=== PATIENT | male | born 1960 | race Caucasian/White ===

== ENCOUNTER 2018-04-11 01:15 | Inpatient (IN) | payer SELFPAY ==
[2018-04-11] MEDS ORDERED: BABY ASPIRIN PO ONE (02:01)
[2018-04-11] MEDS ORDERED: NITROSTAT SL ONE ×2 (02:01→11:30)
--- NOTE | 2018-04-11 02:03 | Emergency Department Report ---
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 Has an extensive history of cardiac disease, reports cardiac bypass in 2006, multiple stents placed in multiple different states, currently on aspirin and brilinta. The patient presents to the ER with a complaint of chest pain. It is central and left-sided. It does not radiate anywhere. He denies vomiting, diaphoresis, does not have significant shortness of breath. He reports no leg pain or leg swelling but reports multiple airplane t Rips secondary to his confucianism observations. MD Complaint: chest pain -: Gradual Onset: during rest Pain Location: substernal, left chest Pain Radiation: RUE Severity: moderate Quality: tightness, aching, heaviness Consistency: intermittent Improves With: nothing Worsens With: nothing Context: recent travel Aspirin use within the Past 7 Days: (1) Yes - Related Data On Oral Contraceptives: No Home Medications Medication Instructions Recorded Confirmed Last Taken Aspirin 81 mg PO DAILY 04/11/18 04/11/18 Unknown Atorvastatin 40 mg PO DAILY 04/11/18 04/11/18 Unknown Brilinta 90 mg PO DAILY 04/11/18 04/11/18 Unknown Metoprolol Xl 25 mg PO DAILY 04/11/18 04/11/18 Unknown Nitroglycerin ER 1 tab SL BID 04/11/18 04/11/18 Unknown Valsartan 160 mg PO DAILY 04/11/18 04/11/18 Unknown amLODIPine 5 mg PO DAILY 04/11/18 04/11/18 Unknown Allergies Allergy/AdvReac Type Severity Reaction Status Date / Time erythromycin base Allergy Shortness Verified 04/11/18 02:01 of Breath metronidazole [From Flagyl] Allergy Shortness Verified 04/11/18 02:01 of Breath Penicillins Allergy Shortness Verified 04/11/18 02:00 of Breath Quinolones Allergy Shortness Verified 04/11/18 02:00 of Breath All Antibiotics Allergy Shortness Uncoded 04/11/18 02:02 of Breath Heart Score - HEART Score History: Moderately suspicious EKG: Non-specific Age: 45-65 Risk factors: 1-2 risk factors Troponin: < normal limit HEART Score: 4 - Critical Actions Critical Actions: 4-6 pts:12-16.6% risk of adverse cardiac event. Should be admitted ED Review of Systems ROS: Stated complaint: CHEST PAIN Other details as noted in HPI Comment: All other systems reviewed and negative ED Past Medical Hx - Past Medical History Previous Medical History?: Yes Hx Hypertension: Yes Hx Heart Attack/AMI: Yes (CABG, Stents) - Surgical History Additional Surgical History: Stents X4, CABG - Social History Smoking Status: Never Smoker Substance Use Type: None - Medications Home Medications: Home Medications Medication Instructions Recorded Confirmed Last Taken Type Aspirin 81 mg PO DAILY 04/11/18 04/11/18 Unknown History Atorvastatin 40 mg PO DAILY 04/11/18 04/11/18 Unknown History Brilinta 90 mg PO DAILY 04/11/18 04/11/18 Unknown History Metoprolol Xl 25 mg PO DAILY 04/11/18 04/11/18 Unknown History Nitroglycerin ER 1 tab SL BID 04/11/18 04/11/18 Unknown History Valsartan 160 mg PO DAILY 04/11/18 04/11/18 Unknown History amLODIPine 5 mg PO DAILY 04/11/18 04/11/18 Unknown History ED Physical Exam - General Limitations: No Limitations General appearance: alert, in no apparent distress - Head Head exam: Present: atraumatic, normocephalic - Eye Eye exam: Present: normal appearance, EOMI. Absent: nystagmus - ENT ENT exam: Present: normal exam, normal orophraynx, mucous membranes moist, normal external ear exam - Neck Neck exam: Present: normal inspection, full ROM. Absent: tenderness, meningismus - Respiratory Respiratory exam: Present: normal lung sounds bilaterally. Absent: respiratory distress - Cardiovascular Cardiovascular Exam: Present: regular rate, normal rhythm, normal heart sounds. Absent: bradycardia, tachycardia, irregular rhythm, systolic murmur, diastolic murmur, rubs, gallop - GI/Abdominal GI/Abdominal exam: Present: soft, normal bowel sounds. Absent: distended, tenderness, guarding, rebound, rigid, pulsatile mass - Rectal Rectal exam: Present: deferred - Extremities Exam Extremities exam: Present: normal inspection, full ROM, normal capillary refill , other (there is no palpable cord. This is negative Homans sign.). Absent: tenderness, pedal edema, joint swelling, calf tenderness - Back Exam Back exam: Present: normal inspection, full ROM. Absent: tenderness, CVA tenderness (R), paraspinal tenderness, vertebral tenderness - Neurological Exam Neurological exam: Present: alert, oriented X3, CN II-XII intact, other ( Extraocular movements intact. Tongue midline. No facial droop. Facial sensation intact to light touch in the V1, V2, V3 distribution bilaterally. 5 and 5 strength in 4 extremities.. Sensation is intact to light touch in 4 extremities.). Absent: motor sensory deficit - Psychiatric Psychiatric exam: Present: normal affect, normal mood - Skin Skin exam: Present: warm, dry, intact, normal color. Absent: rash ED Course Vital Signs 04/11/18 04/11/18 04/11/18 01:26 01:30 01:46 Temperature Pulse Rate 65 69 Respiratory 14 15 Rate Blood Pressure 123/70 129/79 O2 Sat by Pulse 98 99 98 Oximetry 04/11/18 04/11/18 04/11/18 01:53 02:00 02:21 Temperature 98 F Pulse Rate 74 65 60 Respiratory 16 10 L 15 Rate Blood Pressure 123/70 135/70 O2 Sat by Pulse 99 99 99 Oximetry 04/11/18 04/11/18 02:30 02:45 Temperature Pulse Rate 58 L 52 L Respiratory 17 15 Rate Blood Pressure 133/77 129/79 O2 Sat by Pulse 98 99 Oximetry MORGAN score - Morgan Score Age > 65: (0) No Aspirin use within the Past 7 Days: (1) Yes 3 or more CAD Risk Factors: (1) Yes 2 or more Angina events in past 24 hrs: (0) No Known CAD with more than 50% Stenosis: (0) No Elevated Cardiac Markers: (0) No ST Deviation Greater than 0.5mm: (0) No MORGAN Score: 2 ED Medical Decision Making - Lab Data Result diagrams: 04/11/18 02:25 04/11/18 02:25 Vital Signs 04/11/18 04/11/18 04/11/18 01:26 01:30 01:46 Temperature Pulse Rate 65 69 Respiratory 14 15 Rate Blood Pressure 123/70 129/79 O2 Sat by Pulse 98 99 98 Oximetry 0604/11/18 04/11/18 01:53 02:00 02:21 Temperature 98 F Pulse Rate 74 65 60 Respiratory 16 10 L 15 Rate Blood Pressure 123/70 135/70 O2 Sat by Pulse 99 99 99 Oximetry 04/11/18 04/11/18 02:30 02:45 Temperature Pulse Rate 58 L 52 L Respiratory 17 15 Rate Blood Pressure 133/77 129/79 O2 Sat by Pulse 98 99 Oximetry Lab Results 04/11/18 04/11/18 04/11/18 Range/Units 02:25 02:25 02:25 WBC 6.1 (4.5-11.0) K/mm3 RBC 4.09 (3.65-5.03) M/mm3 Hgb 12.6 (11.8-15.2) gm/dl Hct 37.7 (35.5-45.6) % MCV 92 (84-94) fl MCH 31 (28-32) pg MCHC 34 (32-34) % RDW 12.7 L (13.2-15.2) % Plt Count 233 (140-440) K/mm3 Lymph % (Auto) 27.0 (13.4-35.0) % [place] % (Auto) 12.1 H (0.0-7.3) % Eos % (Auto) 6.2 H (0.0-4.3) % Baso % (Auto) 0.9 (0.0-1.8) % Lymph # 1.6 (1.2-5.4) K/mm3 [place] # 0.7 (0.0-0.8) K/mm3 Eos # 0.4 (0.0-0.4) K/mm3 Baso # 0.1 (0.0-0.1) K/mm3 Seg Neutrophils % 53.8 (40.0-70.0) % Seg Neutrophils # 3.3 (1.8-7.7) K/mm3 PT 13.4 (12.2-14.9) Sec. INR 0.97 (0.87-1.13) APTT 26.7 (24.2-36.6) Sec. D-Dimer 135.00 (0-234) ng/mlDDU Sodium 136 L (137-145) mmol/L Potassium 4.0 (3.6-5.0) mmol/L Chloride 99.4 (98-107) mmol/L Carbon Dioxide 24 (22-30) mmol/L Anion Gap 17 mmol/L BUN 16 (9-20) mg/dL Creatinine 0.8 (0.8-1.5) mg/dL Estimated GFR > 60 ml/min BUN/Creatinine Ratio 20 % Glucose 102 H (75-100) mg/dL Calcium 8.9 (8.4-10.2) mg/dL Total Bilirubin 0.20 (0.1-1.2) mg/dL AST 42 H (5-40) units/L ALT 32 (7-56) units/L Alkaline Phosphatase 116 (35-129) units/L Troponin T < 0.010 (0.00-0.029) ng/mL Total Protein 6.7 (6.3-8.2) g/dL Albumin 3.8 L (3.9-5) g/dL Albumin/Globulin Ratio 1.3 % Lipase 57 (13-60) units/L - EKG Data -: EKG Interpreted by Nd - EKG Data 04/11/18 05:01 Sinus, 67 bpm, left axis deviation, atrial enlargement, motion artifact, abnormal EKG, not a STEMI - Radiology Data Radiology results: report reviewed, image reviewed X-ray of the chest is negative for acute disease - Medical Decision Making Differential diagnosis, including but not limited to: GERD, gastritis, hiatal hernia, unstable angina, pneumonia, pulmonary embolus Assessment and plan: 58-year-old male with extensive cardiac history, multiple airplane trips, negative d-dimer, troponin negative, cannot reliably follow up as an outpatient for cardiac risk stratification. He further reports his last stent was placed in [place] a few months ago. Patient will be admitted for an acute coronary syndrome risk stratification given his extremely high risk profile. He is not having active pain at this time. The case was presented to the Hospital physician, Dr. Randall who accepted the patient to the medical service. Critical care attestation.: If time is entered above; I have spent that time in minutes in the direct care of this critically ill patient, excluding procedure time. ED Disposition Clinical Impression: Chest pain Qualifiers: Chest pain type: other chest pain Qualified Code(s): R07.89 - Other chest pain Disposition: OP ADMIT IP TO THIS HOSP Is pt being admited?: Yes Condition: Good
[2018-04-11 02:36] LABS: Basophils # (Auto) 0.1 K/mm3 (0.0-0.1); Basophils % (Auto) 0.9 % (0.0-1.8); Eosinophils # (Auto) 0.4 K/mm3 (0.0-0.4); Eosinophils % (Auto) 6.2 % (0.0-4.3); Hematocrit 37.7 % (35.5-45.6); Hemoglobin 12.6 gm/dl (11.8-15.2); Lymphocytes # (Auto) 1.6 K/mm3 (1.2-5.4); Mean Corpuscular HGB Conc 34 % (32-34); Mean Corpuscular Hemoglobin 31 pg (28-32); Mean Corpuscular Volume 92 fl (84-94); Monocytes # (Auto) 0.7 K/mm3 (0.0-0.8); Monocytes % (Auto) 12.1 % (0.0-7.3); Platelet Count 233 K/mm3 (140-440); Red Blood Count 4.09 M/mm3 (3.65-5.03); Red Cell Distribution Width 12.7 % (13.2-15.2)
[2018-04-11 02:50] LABS: INR 0.97 (0.87-1.13); Partial Thromboplastin Time 26.7 Sec. (24.2-36.6)
[2018-04-11 02:58] LABS: Alanine Aminotransferase 32 units/L (7-56); Albumin 3.8 g/dL (3.9-5); BUN/Creatinine Ratio 20; Blood Urea Nitrogen 16 mg/dL (9-20); Calcium 8.9 mg/dL (8.4-10.2); Hemolysis Index 12; Lipase 57 units/L (13-60)
--- NOTE | 2018-04-11 03:08 | XRay Report ---
FINAL REPORT PROCEDURE: XR CHEST ROUTINE 2V TECHNIQUE: PA and lateral chest radiographs were obtained. CPT 49647 HISTORY: Chest Pain COMPARISON: No prior studies are available for comparison. FINDINGS: Heart: Normal. Mediastinum/Vessels: Multiple sternal wires are present. Lungs/Pleural space: Normal. Bony thorax: No acute osseous abnormality. Other: IMPRESSION: Normal examination.
[2018-04-11] MEDS ORDERED: ZOFRAN IV PRN (04:01)
[2018-04-11] MEDS ORDERED: TYLENOL PO PRN (04:01)
[2018-04-11] MEDS ORDERED: SODIUM CHLORIDE FLUSH SYRINGE 10 ML IV PRN (04:01)
[2018-04-11] MEDS ORDERED: MORPHINE IV PRN (04:01)
--- NOTE | 2018-04-11 04:05 | History and Physical Report ---
History of Present Illness Date of examination: 04/11/18 History of present illness: This is a 58-year-old man with history of hypertension, CAD comes to the ER for evaluation of chest pain. Chest pain is in the left neck down to the left chest , started off as a burning sensation, then turned into a strong pain, intermittent every 30 minutes, intensity 7/10, no radiation, relieved with nitrolycerin, he cannot identify exacerbating. He admits to shortness of breath , no nausea vomiting, diaphoresis. He had last stent 2 months ago Review of systems Constitutional: no weight loss, chills Ears, eyes, nose, mouth and throat: no nasal congestion, no nasal discharge, no sinus pressure, no vision change, no red eye. Neck: No neck pain or rigidity. Cardiovascular: no palpitations Respiratory: no cough Gastrointestinal: no abdominal pain, hematochezia Genitourinary : no frequency , no hematuria Musculoskeletal: no joint swelling or muscle ache Integumentary: no rash, no pruritis Neurological: no parathesias, no numbness, no focal weakness Endocrine: no cold or heat intolerance, no polyuria or polydipsia Hematologic/Lymphatic: no easy bruising, no easy bleeding, no gland swelling Allergic/Immunologic: no urticaria, no angioedema. PAST MEDICAL HISTORY: hypertension, CAD PAST SURGICAL HISTORY: CAGB SOCIAL HISTORY: No alcohol, no tobacco, drugs FAMILY HISTORY: Hypertension Medications and Allergies Allergies Allergy/AdvReac Type Severity Reaction Status Date / Time erythromycin base Allergy Shortness Verified 04/11/18 02:01 of Breath metronidazole [From Flagyl] Allergy Shortness Verified 04/11/18 02:01 of Breath Penicillins Allergy Shortness Verified 04/11/18 02:00 of Breath Quinolones Allergy Shortness Verified 04/11/18 02:00 of Breath All Antibiotics Allergy Shortness Uncoded 04/11/18 02:02 of Breath Home Medications Medication Instructions Recorded Confirmed Last Taken Type Aspirin 81 mg PO DAILY 04/11/18 04/11/18 Unknown History Atorvastatin 40 mg PO DAILY 04/11/18 04/11/18 Unknown History Brilinta 90 mg PO DAILY 04/11/18 04/11/18 Unknown History Metoprolol Xl 25 mg PO DAILY 04/11/18 04/11/18 Unknown History Nitroglycerin ER 1 tab SL BID 04/11/18 04/11/18 Unknown History Valsartan 160 mg PO DAILY 04/11/18 04/11/18 Unknown History amLODIPine 5 mg PO DAILY 04/11/18 04/11/18 Unknown History Exam - Physical Exam Narrative exam: Gen. appearance: Patient lying in bed, no apparent distress HEENT: Normocephalic, atraumatic, pupils equally round and reactive to light, extraocular movement intact, and no sclericterus,. No JVD or thyromegaly or nodule,neck supple, no carotid bruit ,mucous membranes moist, no exudate or erythema Heart: S1, S2, regular rate and rhythm Lungs: Clear bilaterally, breathing comfortable Abdomen: Positive bowel sounds, nontender, nondistended, no organomegaly Extremity: No edema, no cyanosis, clubbing Skin: No rash, nodules, warm, dry Neuro: Oriented 3, cranial nerves II-12 intact, speech is fluent, motor and sensory intact - Constitutional Vitals: Temp Pulse Resp BP Pulse Ox 98 F 52 L 15 129/79 99 04/11/18 01:53 04/11/18 02:45 04/11/18 02:45 04/11/18 02:45 04/11/18 02:45 Results - Labs CBC & Chem 7: 04/13/18 08:02 04/12/18 05:09 Labs: Abnormal lab results 04/11/18 04/11/18 Range/Units 02:25 02:25 RDW 12.7 L (13.2-15.2) % [place] % (Auto) 12.1 H (0.0-7.3) % Eos % (Auto) 6.2 H (0.0-4.3) % Sodium 136 L (137-145) mmol/L Glucose 102 H (75-100) mg/dL AST 42 H (5-40) units/L Albumin 3.8 L (3.9-5) g/dL - Imaging and Cardiology EKG: image reviewed Chest x-ray: report reviewed Assessment and Plan Assessment Chest pain Coronary Artery Disease Plan Admit to medicine Check cardiac enzymes, consul cardiology Continue outpatient medcations DVT prophalaxis
[2018-04-11 05:24] LABS: Creatine Kinase MB 1.9 ng/mL (0.0-4.0)
--- NOTE | 2018-04-11 09:33 | Consultation ---
History of Present Illness Consult date: 04/11/18 Requesting physician: JOSÉ QUINTERO History of present illness: Pt is a 58 YO male with a past medical history significant for CAD s/p CABG in 2006 in [place] and PCI x 4 since CABG (last AMI with PCI 2.5 months ago in [facility]) , HTN, HLP. He is previously unknown to our practice. He presented with complaints of chest pain for the past 3-4 days. He describes his chest pain as a left-sided burning pain which sometimes radiates down the left arm. The pain was initially only present with exertion, however, it has become intermittently present at rest and has also been occurring with food intake for the past couple of days. The pain is somewhat alleviated by ASA and SL nitro. He denies any SOB, palpitations, n/v, diaphoresis, dizziness or syncope. He reports that this pain is similar to pain experienced during prior AMI. He reports compliance with his home medications, including ASA and brilinta. Troponin is negative for AMI x 2 sets. ECG shows no acute ischemic changes. 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 He reports that he has established cardiologists in [place], [place], [place], [place], and [facility]. Past History Past Medical History: CAD, hypertension, hyperlipidemia Past Surgical History: CABG Social history: denies: smoking, alcohol abuse, prescription drug abuse Medications and Allergies Allergies Allergy/AdvReac Type Severity Reaction Status Date / Time erythromycin base Allergy Shortness Verified 04/11/18 02:01 of Breath metronidazole [From Flagyl] Allergy Shortness Verified 04/11/18 02:01 of Breath Penicillins Allergy Shortness Verified 04/11/18 02:00 of Breath Quinolones Allergy Shortness Verified 04/11/18 02:00 of Breath All Antibiotics Allergy Shortness Uncoded 04/11/18 02:02 of Breath Home Medications Medication Instructions Recorded Confirmed Last Taken Type Aspirin 81 mg PO DAILY 04/11/18 04/11/18 Unknown History Atorvastatin 40 mg PO DAILY 04/11/18 04/11/18 Unknown History Brilinta 90 mg PO DAILY 04/11/18 04/11/18 Unknown History Metoprolol Xl 25 mg PO DAILY 04/11/18 04/11/18 Unknown History Nitroglycerin ER 1 tab SL BID 04/11/18 04/11/18 Unknown History Valsartan 160 mg PO DAILY 04/11/18 04/11/18 Unknown History amLODIPine 5 mg PO DAILY 04/11/18 04/11/18 Unknown History Active Meds: Active Medications Acetaminophen (Tylenol) 650 mg PO Q4H PRN PRN Reason: Pain MILD(1-3)/Fever >100.5/ALEXANDER Enoxaparin Sodium (Lovenox) 40 mg SUB-Q QDAY SHREYAS Morphine Sulfate (Morphine) 2 mg IV Q4H PRN PRN Reason: Pain, Moderate (4-6) Ondansetron HCl (Zofran) 4 mg IV Q8H PRN PRN Reason: Nausea And Vomiting Sodium Chloride (Sodium Chloride Flush Syringe 10 Ml) 10 ml IV BID SHREYAS Sodium Chloride (Sodium Chloride Flush Syringe 10 Ml) 10 ml IV PRN PRN PRN Reason: LINE FLUSH Review of Systems Constitutional: no weight loss, no weight gain, no fever, no chills, no sweats Ears, nose, mouth and throat: no ear pain, no nose pain, no sinus pressure, no sinus pain Cardiovascular: chest pain, high blood pressure, decreased exercise tolerance, no orthopnea, no palpitations, no rapid/irregular heart beat, no edema, no syncope, no lightheadedness, no shortness of breath, no dyspnea on exertion, no paroxysmal nocturnal dyspnea, no claudication, no leg edema Respiratory: no cough, no shortness of breath, no dyspnea on exertion, no congestion, no wheezing, no pain on inspiration Gastrointestinal: no abdominal pain, no nausea, no vomiting, no diarrhea, no constipation, no change in bowel habits Genitourinary Male: no dysuria, no hematuria, no flank pain, no discharge, no urinary frequency, no urinary hesitancy Musculoskeletal: no neck stiffness, no neck pain, no low back pain, no shooting leg pain Integumentary: no rash, no pruritis, no redness, no sores, no wounds Neurological: no head injury, no paralysis, no weakness, no parathesias, no numbness, no tingling, no seizures, no syncope Psychiatric: no anxiety Endocrine: no cold intolerance, no heat intolerance Hematologic/Lymphatic: no easy bruising, no easy bleeding, no lymphadenopathy Allergic/Immunologic: no urticaria, no wheezing, no persistent infections Physical Examination Vital Signs Pulse Ox 98 04/11/18 01:26 General appearance: no acute distress HEENT: Positive: PERRL, Normocephaly, Mucus Membranes Moist Neck: Positive: neck supple, trachea midline Cardiac: Positive: Reg Rate and Rhythm, S1/S2 Lungs: Positive: clear to auscultation Neuro: Positive: Grossly Intact, Cranial Nerve 2-12 Intact Abdomen: Positive: Soft. Negative: Tender Skin: Positive: Clear. Negative: Rash, Wound Musculoskeletal: No Fluid Collection, No Pain, Normal Range of Motion Extremities: Present: normal. Absent: edema Results 04/11/18 02:25 04/11/18 02:25 Cardiac Enzymes 04/11/18 04/11/18 04/11/18 Range/Units 02:25 04:33 07:30 AST 42 H (5-40) units/L CK-MB (CK-2) 1.9 2.0 (0.0-4.0) ng/mL Coagulation 04/11/18 Range/Units 02:25 PT 13.4 (12.2-14.9) Sec. INR 0.97 (0.87-1.13) APTT 26.7 (24.2-36.6) Sec. CBC 04/11/18 Range/Units 02:25 WBC 6.1 (4.5-11.0) K/mm3 RBC 4.09 (3.65-5.03) M/mm3 Hgb 12.6 (11.8-15.2) gm/dl Hct 37.7 (35.5-45.6) % Plt Count 233 (140-440) K/mm3 Lymph # 1.6 (1.2-5.4) K/mm3 [place] # 0.7 (0.0-0.8) K/mm3 Eos # 0.4 (0.0-0.4) K/mm3 Baso # 0.1 (0.0-0.1) K/mm3 Comprehensive Metabolic Panel 04/11/18 Range/Units 02:25 Sodium 136 L (137-145) mmol/L Potassium 4.0 (3.6-5.0) mmol/L Chloride 99.4 (98-107) mmol/L Carbon Dioxide 24 (22-30) mmol/L BUN 16 (9-20) mg/dL Creatinine 0.8 (0.8-1.5) mg/dL Glucose 102 H (75-100) mg/dL Calcium 8.9 (8.4-10.2) mg/dL AST 42 H (5-40) units/L ALT 32 (7-56) units/L Alkaline Phosphatase 116 (35-129) units/L Total Protein 6.7 (6.3-8.2) g/dL Albumin 3.8 L (3.9-5) g/dL - Imaging and Cardiology Echo: pending EKG: report reviewed, image reviewed EKG interpretations - Telemetry EKG Rhythm: Sinus Rhythm - EKG Sinus rhythms and dysrhythmias: sinus rhythm Chamber hypertrophy or enlargement: left ventricular hypertro Repolarization changes or abnormalities: repolarization abn secondary to ventricular hypertrophy Myocardial infarction: inferior VT (old age inde Assessment and Plan Assessment: Unstable angina - ECG with no acute ischemic changes; troponin negative for AMI CAD s/p CABG in 2006 in [place] and PCI x 4 since CABG (last AMI with PCI 2.5 months ago in [place]) HTN HLP Plan: Proceed with lexiscan MPI stress test this AM. Await findings. Obtain echo. Resume home cardiac regimen. Assessment and plan reviewed with pt at bedside. The patient has been seen in conjunction with Dr. Randle who agrees with the assessment and plan of care.
[2018-04-11] MEDS ORDERED: NITROSTAT SL PRN (10:27)
[2018-04-11] MEDS ORDERED: LEXISCAN IV ONE ×2 (11:09→11:14)
--- NOTE | 2018-04-11 13:14 | Event Note ---
Date: 04/11/18 Patient resents with a history of coronary artery disease status post CABG, PCI 4, hypertension hyperlipidemia presents with chest pain unstable angina. Chest pain was at rest and exertion. Currently undergoing Lexiscan. Patient had no acute EKG changes cardiac markers were negative. Cardiology evaluation in progress. Patient's been placed back on home medications. Await further cardiac evaluation and findings.
[2018-04-11] MEDS: LOVENOX SUB-Q SCH (15:57)
[2018-04-11] MEDS: SODIUM CHLORIDE FLUSH SYRINGE 10 ML IV SCH ×2 (15:59→21:21)
[2018-04-11] MEDS: BRILINTA PO SCH ×2 (16:01→21:21)
[2018-04-11 16:02] LABS: Creatine Kinase MB 2.3 ng/mL (0.0-4.0)
[2018-04-11 21:03] LABS: Creatine Kinase MB 2.4 ng/mL (0.0-4.0)
[2018-04-11] MEDS: LOPRESSOR PO SCH (21:20)
[2018-04-12 05:37] LABS: Basophils % (Auto) 0.7 % (0.0-1.8); Eosinophils # (Auto) 0.4 K/mm3 (0.0-0.4); Eosinophils % (Auto) 6.4 % (0.0-4.3); Hematocrit 40.5 % (35.5-45.6); Hemoglobin 13.8 gm/dl (11.8-15.2); Lymphocytes # (Auto) 1.4 K/mm3 (1.2-5.4); Lymphocytes % (Auto) 23.9 % (13.4-35.0); Mean Corpuscular HGB Conc 34 % (32-34); Mean Corpuscular Hemoglobin 31 pg (28-32); Mean Corpuscular Volume 93 fl (84-94); Monocytes # (Auto) 0.6 K/mm3 (0.0-0.8); Monocytes % (Auto) 10.8 % (0.0-7.3); Platelet Count 238 K/mm3 (140-440); Red Blood Count 4.38 M/mm3 (3.65-5.03)
[2018-04-12 05:45] LABS: INR 0.95 (0.87-1.13)
[2018-04-12 07:00] LABS: BUN/Creatinine Ratio 14; Blood Urea Nitrogen 10 mg/dL (9-20); Calcium 8.8 mg/dL (8.4-10.2); HDL Cholesterol 53 mg/dL (40-59); Hemolysis Index 7; LDL Cholesterol,Direct 96 mg/dL (50-130)
[2018-04-12] MEDS ORDERED: NACL 0.9% 500 ML 500 ML IV SCH (09:00)
[2018-04-12] MEDS: BRILINTA PO SCH ×2 (09:20→22:13)
[2018-04-12] MEDS: BABY ASPIRIN PO SCH (09:20)
[2018-04-12] MEDS: LOVENOX SUB-Q SCH ×2 (10:32→23:10)
--- NOTE | 2018-04-12 11:47 | Progress Note ---
Assessment and Plan Assessment: Unstable angina - ECG with no acute ischemic changes; troponin negative for AMI CAD s/p CABG in 2006 in [place] and PCI x 4 since CABG (last AMI with PCI 2.5 months ago in [place]) HTN HLP Plan: Echo reviewed with no significant abnormalities, normal LVEF. S/p lexiscan MPI stress test yesterday which was negative for significant ischemia. However, given extensive cardiac history and persistent chest pain, will proceed with coronary angiography for definitive diagnosis. Will plan for LH in AM. NPO after MN. Assessment and plan reviewed with pt at bedside. The patient has been seen in conjunction with Dr. Randle who agrees with the assessment and plan of care. Subjective Date of service: 04/12/18 Principal diagnosis: chest pain Interval history: pt resting comfortably in bed, still with c/o intermittent chest pain overnight. has been NPO since MN for [facility] today. Objective Last Vital Signs Temp 98.1 F 04/12/18 08:28 Pulse 55 L 04/12/18 08:28 Resp 16 04/12/18 08:50 BP 135/90 04/12/18 08:28 Pulse Ox 97 04/12/18 08:28 - Physical Examination General: No Apparent Distress HEENT: Positive: PERRL, Normocephaly, Mucus Membranes Moist Neck: Positive: neck supple, trachea midline Cardiac: Positive: Reg Rate and Rhythm, S1/S2 Lungs: Positive: clear to auscultation Neuro: Positive: Grossly Intact, Cranial Nerve 2-12 Intact Abdomen: Positive: Soft. Negative: Tender Skin: Positive: Clear. Negative: Rash, Wound Musculoskeletal: No Fluid Collection, No Pain, Normal Range of Motion Extremities: Present: normal. Absent: edema - Labs and Meds Cardiac Enzymes 04/11/18 04/11/18 Range/Units 15:26 19:27 CK-MB (CK-2) 2.3 2.4 (0.0-4.0) ng/mL Coagulation 04/12/18 Range/Units 05:09 PT 13.2 (12.2-14.9) Sec. INR 0.95 (0.87-1.13) Lipids 04/12/18 Range/Units 05:09 Triglycerides 114 (2-149) mg/dL Cholesterol 154 (50-199) mg/dL HDL Cholesterol 53 (40-59) mg/dL Cholesterol/HDL Ratio 2.90 % CBC 04/12/18 Range/Units 05:09 WBC 5.7 (4.5-11.0) K/mm3 RBC 4.38 (3.65-5.03) M/mm3 Hgb 13.8 (11.8-15.2) gm/dl Hct 40.5 (35.5-45.6) % Plt Count 238 (140-440) K/mm3 Lymph # 1.4 (1.2-5.4) K/mm3 [place] # 0.6 (0.0-0.8) K/mm3 Eos # 0.4 (0.0-0.4) K/mm3 Baso # 0.0 (0.0-0.1) K/mm3 Comprehensive Metabolic Panel 04/12/18 Range/Units 05:09 Sodium 140 (137-145) mmol/L Potassium 3.8 (3.6-5.0) mmol/L Chloride 102.7 (98-107) mmol/L Carbon Dioxide 22 (22-30) mmol/L BUN 10 (9-20) mg/dL Creatinine 0.7 L (0.8-1.5) mg/dL Glucose 91 (75-100) mg/dL Calcium 8.8 (8.4-10.2) mg/dL - Imaging and Cardiology EKG: report reviewed, image reviewed Echo: report reviewed (03/2018: EF 50-55%) - Telemetry EKG Rhythm: Sinus Rhythm - EKG Sinus rhythms and dysrhythmias: sinus rhythm Chamber hypertrophy or enlargement: left ventricular hypertro Repolarization changes or abnormalities: repolarization abn secondary to ventricular hypertrophy Myocardial infarction: inferior MS (old age inde
--- NOTE | 2018-04-12 12:25 | Progress Note ---
Assessment and Plan Assessment and plan: Unstable angina. Chest pain. On Aspirin, Brilinta, Metoprolol, statin For cardiac cath tomorrow. Coronary artery disease s/p CABG, s/p multiple stents. On Aspirin, beta blockers Hypertension BP controlled on Lopressor and Diovan. Hyperlipidemia. Cont statins DVT prophylaxis. On Lovenox Full code status History Interval history: Chest pain, No shortness of breath Hospitalist Physical - Physical exam Narrative exam: Gen : Not in acute distress, lying in bed HEENT:Normocephalic, atraumatic Neck: supple, No JVD Lungs:Clear to auscultation bilaterally,no crackles, no wheeze Heart :S1 and S2 reg, no murmurs, rubs or gallop Abd:soft, non tender, non distended, normal bowel sounds Ext: No edema, no clubbing, no cyanosis Neuro: Awake,alert,oriented x 3, no focal signs - Constitutional Vitals: Temp Pulse Resp BP Pulse Ox 98.1 F 55 L 16 135/90 99 04/12/18 08:28 04/12/18 08:28 04/12/18 08:50 04/12/18 08:28 04/12/18 10:50 General appearance: Present: no acute distress Results - Labs CBC & Chem 7: 04/13/18 08:02 04/12/18 05:09 Labs: Laboratory Last Values WBC 5.7 K/mm3 (4.5-11.0) 04/12/18 05:09 RBC 4.38 M/mm3 (3.65-5.03) 04/12/18 05:09 Hgb 13.8 gm/dl (11.8-15.2) 04/12/18 05:09 Hct 40.5 % (35.5-45.6) 04/12/18 05:09 MCV 93 fl (84-94) 04/12/18 05:09 MCH 31 pg (28-32) 04/12/18 05:09 MCHC 34 % (32-34) 04/12/18 05:09 RDW 13.0 % (13.2-15.2) L 04/12/18 05:09 Plt Count 238 K/mm3 (140-440) 04/12/18 05:09 Lymph % (Auto) 23.9 % (13.4-35.0) 04/12/18 05:09 [place] % (Auto) 10.8 % (0.0-7.3) H 04/12/18 05:09 Eos % (Auto) 6.4 % (0.0-4.3) H 04/12/18 05:09 Baso % (Auto) 0.7 % (0.0-1.8) 04/12/18 05:09 Lymph # 1.4 K/mm3 (1.2-5.4) 04/12/18 05:09 [place] # 0.6 K/mm3 (0.0-0.8) 04/12/18 05:09 Eos # 0.4 K/mm3 (0.0-0.4) 04/12/18 05:09 Baso # 0.0 K/mm3 (0.0-0.1) 04/12/18 05:09 Seg Neutrophils % 58.2 % (40.0-70.0) 04/12/18 05:09 Seg Neutrophils # 3.3 K/mm3 (1.8-7.7) 04/12/18 05:09 PT 13.2 Sec. (12.2-14.9) 04/12/18 05:09 INR 0.95 (0.87-1.13) 04/12/18 05:09 APTT 26.7 Sec. (24.2-36.6) 04/11/18 02:25 D-Dimer 135.00 ng/mlDDU (0-234) 04/11/18 02:25 Sodium 140 mmol/L (137-145) 04/12/18 05:09 Potassium 3.8 mmol/L (3.6-5.0) 04/12/18 05:09 Chloride 102.7 mmol/L (98-107) 04/12/18 05:09 Carbon Dioxide 22 mmol/L (22-30) 04/12/18 05:09 Anion Gap 19 mmol/L 04/12/18 05:09 BUN 10 mg/dL (9-20) 04/12/18 05:09 Creatinine 0.7 mg/dL (0.8-1.5) L 04/12/18 05:09 Estimated GFR > 60 ml/min 04/12/18 05:09 BUN/Creatinine Ratio 14 % 04/12/18 05:09 Glucose 91 mg/dL (75-100) 04/12/18 05:09 Calcium 8.8 mg/dL (8.4-10.2) 04/12/18 05:09 Total Bilirubin 0.20 mg/dL (0.1-1.2) 04/11/18 02:25 AST 42 units/L (5-40) H 04/11/18 02:25 ALT 32 units/L (7-56) 04/11/18 02:25 Alkaline Phosphatase 116 units/L (35-129) 04/11/18 02:25 Total Creatine Kinase 82 units/L (55-170) 04/11/18 19:27 CK-MB (CK-2) 2.4 ng/mL (0.0-4.0) 04/11/18 19:27 CK-MB (CK-2) Rel Index 2.9 (0-4) 04/11/18 19:27 Troponin T < 0.010 ng/mL (0.00-0.029) 04/11/18 07:30 Total Protein 6.7 g/dL (6.3-8.2) 04/11/18 02:25 Albumin 3.8 g/dL (3.9-5) L 04/11/18 02:25 Albumin/Globulin Ratio 1.3 % 04/11/18 02:25 Triglycerides 114 mg/dL (2-149) 04/12/18 05:09 Cholesterol 154 mg/dL (50-199) 04/12/18 05:09 LDL Cholesterol Direct 96 mg/dL (50-130) 04/12/18 05:09 HDL Cholesterol 53 mg/dL (40-59) 04/12/18 05:09 Cholesterol/HDL Ratio 2.90 % 04/12/18 05:09 Lipase 57 units/L (13-60) 04/11/18 02:25
[2018-04-12] MEDS: DIOVAN PO SCH (14:19)
[2018-04-12] MEDS: LOPRESSOR PO SCH ×2 (14:20→22:30)
[2018-04-12] MEDS: SODIUM CHLORIDE FLUSH SYRINGE 10 ML IV SCH ×2 (14:21→23:00)
[2018-04-12] MEDS: ALUM-MAG HYDROX-SIMETH 200-200-20MG/5ML PO PRN ×2 (17:41→23:11)
[2018-04-12] MEDS: PEPCID PO SCH (22:13)
[2018-04-13 09:08] LABS: Basophils % (Auto) 0.7 % (0.0-1.8); Eosinophils # (Auto) 0.4 K/mm3 (0.0-0.4); Eosinophils % (Auto) 6.2 % (0.0-4.3); Hematocrit 41.1 % (35.5-45.6); Hemoglobin 13.5 gm/dl (11.8-15.2); Lymphocytes # (Auto) 1.6 K/mm3 (1.2-5.4); Lymphocytes % (Auto) 25.2 % (13.4-35.0); Mean Corpuscular HGB Conc 33 % (32-34); Mean Corpuscular Hemoglobin 31 pg (28-32); Mean Corpuscular Volume 93 fl (84-94); Monocytes # (Auto) 0.7 K/mm3 (0.0-0.8); Monocytes % (Auto) 10.1 % (0.0-7.3); Platelet Count 256 K/mm3 (140-440); Red Blood Count 4.42 M/mm3 (3.65-5.03); Red Cell Distribution Width 12.7 % (13.2-15.2)
[2018-04-13] MEDS ORDERED: NACL 0.9% 500 ML 500 ML ONE (09:18)
[2018-04-13] MEDS: BRILINTA PO SCH ×2 (09:42→22:29)
[2018-04-13] MEDS: BABY ASPIRIN PO SCH (09:42)
[2018-04-13] MEDS ORDERED: HEPARIN/NS 5000 UNIT/500ML(CATH LAB) 1,000 ML IR ONE (09:48)
[2018-04-13] MEDS ORDERED: XYLOCAINE 2% INFILTRATI ONE (09:48)
[2018-04-13] MEDS ORDERED: CALAN ONE (09:48)
[2018-04-13] MEDS ORDERED: NITROGLYCERIN SYRINGE 3 ML ONE (09:49)
[2018-04-13] MEDS: SUBLIMAZE ONE ×2 (10:14→10:47)
[2018-04-13] MEDS: VERSED ONE ×2 (10:14→10:47)
[2018-04-13] MEDS: HEPARIN 10,000 UNITS/10 ML ONE ×2 (10:38→10:42)
[2018-04-13] MEDS ORDERED: SUBLIMAZE ONE (10:48)
[2018-04-13] MEDS ORDERED: VERSED ONE (10:48)
--- NOTE | 2018-04-13 11:56 | Progress Note ---
Assessment and Plan Assessment: Unstable angina - ECG with no acute ischemic changes; troponin negative for AMI CAD s/p CABG and PCI HTN HLP Plan: S/p LHC this AM with PCI of graft. Increase lipitor to 80mg daily and cont all other present cardiac management. Cont to monitor overnight with likely d/c home in AM. The patient has been seen in conjunction with Dr. Azevedo who agrees with the assessment and plan of care. Subjective Date of service: 04/13/18 Principal diagnosis: chest pain Interval history: pt resting comfortably in bed, for [facility] today. Objective Last Vital Signs Temp 97.4 F L 04/13/18 09:15 Pulse 49 L 04/13/18 09:15 Resp 16 04/13/18 09:15 BP 136/73 04/13/18 09:15 Pulse Ox 98 04/13/18 09:15 - Physical Examination General: No Apparent Distress HEENT: Positive: PERRL, Normocephaly, Mucus Membranes Moist Neck: Positive: neck supple, trachea midline Cardiac: Positive: Reg Rate and Rhythm, S1/S2 Lungs: Positive: clear to auscultation Neuro: Positive: Grossly Intact, Cranial Nerve 2-12 Intact Abdomen: Positive: Soft. Negative: Tender Skin: Positive: Clear. Negative: Rash, Wound Musculoskeletal: No Fluid Collection, No Pain, Normal Range of Motion Extremities: Present: normal. Absent: edema - Labs and Meds CBC 04/13/18 Range/Units 08:02 WBC 6.5 (4.5-11.0) K/mm3 RBC 4.42 (3.65-5.03) M/mm3 Hgb 13.5 (11.8-15.2) gm/dl Hct 41.1 (35.5-45.6) % Plt Count 256 (140-440) K/mm3 Lymph # 1.6 (1.2-5.4) K/mm3 [place] # 0.7 (0.0-0.8) K/mm3 Eos # 0.4 (0.0-0.4) K/mm3 Baso # 0.0 (0.0-0.1) K/mm3 - Imaging and Cardiology EKG: report reviewed, image reviewed Echo: report reviewed (03/2018: EF 50-55%) - EKG Sinus rhythms and dysrhythmias: sinus rhythm Chamber hypertrophy or enlargement: left ventricular hypertro Repolarization changes or abnormalities: repolarization abn secondary to ventricular hypertrophy Myocardial infarction: inferior [place] (old age inde
--- NOTE | 2018-04-13 12:08 | Cardiac Catherization Report ---
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 The patient is aware of the procedure, potential complications and alternatives of therapy available. DESCRIPTION OF PROCEDURE: The patient was brought to the catheterization laboratory in a fasting condition. PAST MEDICAL HISTORY: Significant for that patient has left internal mammary along with free right internal mammary attached to the mid LAD and distal LAD. Also, saphenous vein graft to the PDA in 2006. Subsequently, had intervention of the distal circumflex artery with a stent placement. He has multiple interventions of the vein graft to the RCA in 2006, again in December of this year. Presently, the patient presenting with unstable angina, hence scheduled for cardiac catheterization. The patient is aware of the procedure, potential complications and alternatives of therapy. The patient was brought to the catheterization laboratory in a fasting condition. Right groin area is thoroughly cleansed with Betadine solution. Sterile drapes were applied. Local anesthesia was achieved using 2% Xylocaine. The patient was sedated with IV Versed after evaluating for moderate sedation. Subsequently right femoral artery puncture was made under fluoroscopy of the right with 5-Icelandic micropuncture needle. Subsequently, a 5-Icelandic sheath was introduced. A 5-Icelandic multipurpose catheter was used to obtain the angiograms of the right coronary artery and angiograms of the vein graft to the RCA. Subsequently, a JL4 catheter was used to obtain the angiograms of the left coronary artery, left internal mammary graft was used to obtain the angiograms of the left mammary graft. Left ventriculogram was performed using the same mammary graft catheter. At the end of the procedure, it was decided to proceed with intervention of the vein graft to the RCA. Following findings were noted. HEMODYNAMICS: 1. Opening aortic pressure 187/88, left ventricular pressure 186/32. No gradient across the aortic valve. Estimated ejection fraction 50-55%. 2. Left ventriculogram done in [place] projection using hand injection showed akinesis of the basal part of the inferior wall. Rest of the ventricle moving well. Only limited amount of dye was injected. 3. Right coronary artery shows diffuse disease from the ostium and is occluded in the mid part. 4. Saphenous vein graft to the RCA is patent with patent stent in the proximal one-third and also stents noted in the distal part of the SVG to the PDA. There is 90% stenosis noted in the distal stent in the mid part. Whether this is a stented area in between the stents is not clear. However, filling of the distal vessels is slow with severe stenosis. LEFT CORONARY ARTERY: Left main arises normally from left coronary cusp. Left main without significant disease. LAD is not visualized after the proximal part suggesting there may be stenosis in the proximal part versus competitive flow from the mammary grafts. CIRCUMFLEX: There is a medium size ramus branch without significant disease. Circumflex artery is a nondominant vessel, shows widely patent stent in the distal part. Circumflex artery and branches and ramus branch without significant disease. Left internal mammary graft to the LAD with graft using the free SILVIA to the distal LAD is widely patent. Both the branch of the grafts are patent and LAD itself without significant disease. COLLATERALS: None. FINAL IMPRESSION: Severe LAD disease protected by left internal mammary graft and free graft from the left internal mammary to the distal LAD, which is widely patent. Circumflex artery shows widely patent distal stent. Right coronary artery dominant vessel is occluded chronically in the mid part. Vein graft to the RCA has patent stent in the proximal part and also severe in-stent restenosis noted in the distal stented area. This is dominant vessel. Considering the clinical picture of unstable angina along with severe stenosis approaching 90% with some compromise of the flow it was decided to proceed with intervention of this in-stent restenosis. INTERVENTIONAL PROCEDURE: Lesion is in the in-stent restenosis in the long distal stent in the vein graft to the RCA, namely PDA. The patient has indwelling 5-Icelandic sheath, which was changed to 6-Icelandic sheath. The patient was heparinized with 8000 units of IV heparin. Subsequently, 6-Icelandic, JR4 guiding catheter was engaged in the right coronary artery and 0.014 inch [place] wire was advanced into the distal RCA through the vein graft without difficulty. Severe in-stent restenosis was dilated with 2.0 x 12 mm balloon followed by placement of 2.25 x 12 mm Xience Alpine stent, inflated up to 18 atmospheres with good result. Complete flow was noted at the end of the procedure. No complications of dissection or perforation or distal embolization noted. The patient tolerated the procedure well without any hemodynamic or electrocardiographic changes and no chest pain. Angiogram of the right femoral artery was obtained; however, it was felt appropriate to use a closure device. A 6-Icelandic Perclose device was attempted, which was felt to be successful; however, at the end of the procedure the patient started oozing blood and also considering incomplete hemostasis and manual pressure was applied and good hemostasis was achieved. In-stent restenosis is located in the distal part of the saphenous vein graft to the RCA, PDA. Lesion was reduced from 90% to 0%. MORGAN 2-3 flow initially was noted preprocedure and MORGAN 3 flow was noted post-procedure. No complications were noted. The patient was sedated at 10:10 a.m. when monitoring of the sedation completed on 11:14 a.m. No untoward complications were noted. FINAL IMPRESSION: Uncomplicated drug-eluting stent, placement for in-stent restenosis in the distal part of the saphenous vein graft to the PDA of dominant RCA. The patient will be monitored. The patient is already on aspirin and Brilinta. Findings were explained to the patient. JOB# [id number] ANIRUDH/OPAL
[2018-04-13 13:51] LABS: INR 1.1 (0.87-1.13)
--- NOTE | 2018-04-13 13:54 | Treadmill Report ---
MYOCARDIAL PERFUSION IMAGING REPORT The patient is a 58-year-old gentleman of race, who was admitted with chest pain and subsequently underwent IV Lexiscan nuclear imaging. Resting myocardial perfusion images were obtained using technetium pyrophosphate scan and subsequently after IV Lexiscan, post-vasodilation perfusion images were obtained. These images showed severe mid and basal inferior wall, moderate size noted in the chest images and there is some improvement during the rest, but still there is significant area of perfusion defect noted in the rest images too. Otherwise, rest of the myocardium has normal perfusion. Gated images were obtained post-vasodilation and calculated left ventricular ejection fraction was found to be 61% and TID ratio was found to be 1.20. FINAL IMPRESSION: Medium sized severe perfusion defect in the mid and basal part of the inferior wall, which is partially reversible with normal ejection fraction of 61%. This study represents moderate risk for future cardiovascular events. JOB# [id number] ANIRUDH/OPAL
--- NOTE | 2018-04-13 14:01 | Progress Note ---
Assessment and Plan Assessment and plan: Unstable angina. s/p cardiac cath, PCI with drug eluting stent placed on in-stent restenosis of saphenous vein graft of PDA of RCA.. On Aspirin, Brilinta, Metoprolol, statin Coronary artery disease s/p CABG, s/p multiple stents. On Aspirin, beta blockers Hypertension BP controlled on Lopressor and Diovan. Hyperlipidemia. Cont statins DVT prophylaxis. On Lovenox Full code status LIkely dc home tomorrow. History Interval history: had cardiac cath and PCI, stent placed today No more chest pain Hospitalist Physical - Constitutional Vitals: Temp Pulse Resp BP Pulse Ox 96.7 F L 48 L 14 134/82 100 04/13/18 11:41 04/13/18 13:30 04/13/18 13:30 04/13/18 13:30 04/13/18 13:30 General appearance: Present: no acute distress Results - Labs CBC & Chem 7: 04/13/18 08:02 04/12/18 05:09 Labs: Laboratory Last Values WBC 6.5 K/mm3 (4.5-11.0) 04/13/18 08:02 RBC 4.42 M/mm3 (3.65-5.03) 04/13/18 08:02 Hgb 13.5 gm/dl (11.8-15.2) 04/13/18 08:02 Hct 41.1 % (35.5-45.6) 04/13/18 08:02 MCV 93 fl (84-94) 04/13/18 08:02 MCH 31 pg (28-32) 04/13/18 08:02 MCHC 33 % (32-34) 04/13/18 08:02 RDW 12.7 % (13.2-15.2) L 04/13/18 08:02 Plt Count 256 K/mm3 (140-440) 04/13/18 08:02 Lymph % (Auto) 25.2 % (13.4-35.0) 04/13/18 08:02 [place] % (Auto) 10.1 % (0.0-7.3) H 04/13/18 08:02 Eos % (Auto) 6.2 % (0.0-4.3) H 04/13/18 08:02 Baso % (Auto) 0.7 % (0.0-1.8) 04/13/18 08:02 Lymph # 1.6 K/mm3 (1.2-5.4) 04/13/18 08:02 [place] # 0.7 K/mm3 (0.0-0.8) 04/13/18 08:02 Eos # 0.4 K/mm3 (0.0-0.4) 04/13/18 08:02 Baso # 0.0 K/mm3 (0.0-0.1) 04/13/18 08:02 Seg Neutrophils % 57.8 % (40.0-70.0) 04/13/18 08:02 Seg Neutrophils # 3.7 K/mm3 (1.8-7.7) 04/13/18 08:02 PT 14.8 Sec. (12.2-14.9) 04/13/18 13:03 INR 1.10 (0.87-1.13) 04/13/18 13:03 APTT 26.7 Sec. (24.2-36.6) 04/11/18 02:25 Activated Clotting Time 169 (74-137) H 04/13/18 13:13 D-Dimer 135.00 ng/mlDDU (0-234) 04/11/18 02:25 Sodium 140 mmol/L (137-145) 04/12/18 05:09 Potassium 3.8 mmol/L (3.6-5.0) 04/12/18 05:09 Chloride 102.7 mmol/L (98-107) 04/12/18 05:09 Carbon Dioxide 22 mmol/L (22-30) 04/12/18 05:09 Anion Gap 19 mmol/L 04/12/18 05:09 BUN 10 mg/dL (9-20) 04/12/18 05:09 Creatinine 0.7 mg/dL (0.8-1.5) L 04/12/18 05:09 Estimated GFR > 60 ml/min 04/12/18 05:09 BUN/Creatinine Ratio 14 % 04/12/18 05:09 Glucose 91 mg/dL (75-100) 04/12/18 05:09 Calcium 8.8 mg/dL (8.4-10.2) 04/12/18 05:09 Total Bilirubin 0.20 mg/dL (0.1-1.2) 04/11/18 02:25 AST 42 units/L (5-40) H 04/11/18 02:25 ALT 32 units/L (7-56) 04/11/18 02:25 Alkaline Phosphatase 116 units/L (35-129) 04/11/18 02:25 Total Creatine Kinase 82 units/L (55-170) 04/11/18 19:27 CK-MB (CK-2) 2.4 ng/mL (0.0-4.0) 04/11/18 19:27 CK-MB (CK-2) Rel Index 2.9 (0-4) 04/11/18 19:27 Troponin T < 0.010 ng/mL (0.00-0.029) 04/11/18 07:30 Total Protein 6.7 g/dL (6.3-8.2) 04/11/18 02:25 Albumin 3.8 g/dL (3.9-5) L 04/11/18 02:25 Albumin/Globulin Ratio 1.3 % 04/11/18 02:25 Triglycerides 114 mg/dL (2-149) 04/12/18 05:09 Cholesterol 154 mg/dL (50-199) 04/12/18 05:09 LDL Cholesterol Direct 96 mg/dL (50-130) 04/12/18 05:09 HDL Cholesterol 53 mg/dL (40-59) 04/12/18 05:09 Cholesterol/HDL Ratio 2.90 % 04/12/18 05:09 Lipase 57 units/L (13-60) 04/11/18 02:25
[2018-04-13] MEDS: SODIUM CHLORIDE FLUSH SYRINGE 10 ML IV SCH ×2 (14:11→22:34)
[2018-04-13] MEDS: PEPCID PO SCH ×2 (15:03→22:29)
[2018-04-13] MEDS: LOVENOX SUB-Q SCH (15:03)
[2018-04-13] MEDS: DIOVAN PO SCH (15:03)
[2018-04-13] MEDS: LOPRESSOR PO SCH ×2 (15:03→22:29)
[2018-04-14 07:29] LABS: BUN/Creatinine Ratio 10; Blood Urea Nitrogen 8 mg/dL (9-20); Calcium 8.9 mg/dL (8.4-10.2); Hemolysis Index 3
--- NOTE | 2018-04-14 09:55 | Progress Note ---
Assessment and Plan Assessment: Unstable angina - ECG with no acute ischemic changes; troponin negative for AMI CAD s/p CABG and PCI HTN HLP Plan: S/p LHC with PCI of in-stent restenosis in the distal part of the saphenous vein graft to the PDA of dominant RCA. Currently stable cardiac status. Pt may discharge home from cardiology standpoint on current cardiac regimen. Pt reports that he is travelling to [place] once discharged and that he will follow up with his labor delivery rn in [place] within 1 week. The patient has been seen in conjunction with Dr. Garza who agrees with the assessment and plan of care. Subjective Date of service: 04/14/18 Principal diagnosis: chest pain Interval history: pt resting comfortably in bed, s/p LHC with PCI yesterday. states his chest pain resolved following LHC with PCI. right groin LHC site c/d/i with no evidence of bleeding or hematoma. tele reviewed - pt in sinus bradycardia. Objective Last Vital Signs Temp 97.9 F 04/14/18 07:44 Pulse 51 L 04/14/18 07:44 Resp 18 04/14/18 07:44 BP 121/64 04/14/18 07:44 Pulse Ox 95 04/14/18 07:44 - Physical Examination General: No Apparent Distress HEENT: Positive: PERRL, Normocephaly, Mucus Membranes Moist Neck: Positive: neck supple, trachea midline Cardiac: Positive: Regular Rhythm, S1/S2, Bradycardia Lungs: Positive: clear to auscultation Neuro: Positive: Grossly Intact, Cranial Nerve 2-12 Intact Abdomen: Positive: Soft. Negative: Tender Skin: Positive: Clear. Negative: Rash, Wound Musculoskeletal: No Fluid Collection, No Pain, Normal Range of Motion Extremities: Present: normal. Absent: edema - Labs and Meds Coagulation 04/13/18 Range/Units 13:03 PT 14.8 (12.2-14.9) Sec. INR 1.10 (0.87-1.13) Comprehensive Metabolic Panel 04/14/18 Range/Units 05:35 Sodium 141 (137-145) mmol/L Potassium 3.7 (3.6-5.0) mmol/L Chloride 103.6 (98-107) mmol/L Carbon Dioxide 24 (22-30) mmol/L BUN 8 L (9-20) mg/dL Creatinine 0.8 (0.8-1.5) mg/dL Glucose 85 (75-100) mg/dL Calcium 8.9 (8.4-10.2) mg/dL - Imaging and Cardiology EKG: image reviewed Echo: report reviewed (03/2018: EF 50-55%) - EKG Sinus rhythms and dysrhythmias: sinus rhythm Chamber hypertrophy or enlargement: left ventricular hypertro Repolarization changes or abnormalities: repolarization abn secondary to ventricular hypertrophy Myocardial infarction: inferior [place] (old age inde
[2018-04-14] MEDS: LOPRESSOR PO SCH (10:24)
--- NOTE | 2018-04-14 10:28 | Discharge Summary ---
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 2.Follow up with cardiology in 1 week. 3.No strenous activity unless cleared by cardiology Follow up with: PRIMARY CARE, [Primary Care Provider] - 3-5 Days Prescriptions: AtorvaSTATin [Lipitor] 80 mg PO QHS 30 Days tablet Famotidine [Pepcid] 20 mg PO BID #60 tablet Metoprolol [Lopressor TAB] 12.5 mg PO BID #60 tablet
[2018-04-14 13:12] VITALS: BP 123/76
[2018-04-14] MEDS: BRILINTA PO SCH (13:24)
[2018-04-14] MEDS: DIOVAN PO SCH (13:24)
[2018-04-14] MEDS: BABY ASPIRIN PO SCH (13:24)
[2018-04-14] MEDS: PEPCID PO SCH (13:25)
[2018-04-14] MEDS: SODIUM CHLORIDE FLUSH SYRINGE 10 ML IV SCH (13:25)
[2018-04-14] MEDS: LOVENOX SUB-Q SCH (13:25)
== END 2018-04-14 14:54 | disposition home or self-care (01) | DRG 247 ==
LOC: ED 01:15 → 4A 04:01
PROVIDERS: ADMIT Internal Medicine; ATTEND Internal Medicine
PROC: 4A023N7 Measurement of Cardiac Sampling and Pressure, Left Heart, Percutaneous Approach (ICD-10-PCS; principal; 2018-04-13)
PROC: 027034Z Dilation of Coronary Artery, One Artery with Drug-eluting Intraluminal Device, Percutaneous Approach (ICD-10-PCS; 2018-04-13)
PROC: B2111ZZ Fluoroscopy of Multiple Coronary Arteries using Low Osmolar Contrast (ICD-10-PCS; 2018-04-13)
PROC: B2151ZZ Fluoroscopy of Left Heart using Low Osmolar Contrast (ICD-10-PCS; 2018-04-13)
PROC: B2121ZZ Fluoroscopy of Single Coronary Artery Bypass Graft using Low Osmolar Contrast (ICD-10-PCS; 2018-04-13)
DX: T82.855A Stenosis of coronary artery stent, initial encounter (principal); I25.110 Atherosclerotic heart disease of native coronary artery with unstable angina pectoris; E78.5 Hyperlipidemia, unspecified; I10 Essential (primary) hypertension; Y83.8 Other surgical procedures as the cause of abnormal reaction of the patient, or of later complication, without mention of misadventure at the time of the procedure; Z88.1 Allergy status to other antibiotic agents; Z88.0 Allergy status to penicillin; Z88.8 Allergy status to other drugs, medicaments and biological substances; Z95.1 Presence of aortocoronary bypass graft; I25.2 Old myocardial infarction; Z82.49 Family history of ischemic heart disease and other diseases of the circulatory system; Y92.89 Other specified places as the place of occurrence of the external cause
CPT/HCPCS: 36415; 71046; 78452; 80048; 80053; 80061; 82550; 82553; 83690; 84484; 85025; 85347; 85379; 85610; 85730; 92937; 93005; 93010; 93017; 93306; 93459; A9270-GY; A9502; C1725; C1760; C1769; C1874; C1887; C9604; J1644; J1650; J2250; J2785; J3010; J7040; Q9967